=== PATIENT | male | born 1935 | race Caucasian/White ===

== ENCOUNTER 2016-08-15 21:26 | Outpatient (CLI) | payer MEDICARE, OTHER | END 2016-08-15 21:27 | disposition home or self-care (01) | DX: M79.604 Pain in right leg (principal) ==

== ENCOUNTER 2016-08-18 11:24 | Outpatient (CLI) | payer MEDICARE, OTHER | END 2016-08-18 23:59 | DX: R10.9 Unspecified abdominal pain (principal); Z79.899 Other long term (current) drug therapy ==

== ENCOUNTER 2016-08-22 13:52 | Emergency (ER) | payer MEDICARE, OTHER ==
[2016-08-22] MEDS ORDERED: ASPIRIN CHEW 81 MG TABLET PO STA (15:07)
[2016-08-22] MEDS ORDERED: ASPIRIN CHEW 81 MG TABLET ONE (15:13)
== END 2016-08-22 17:06 | disposition home or self-care (01) ==
DX: I20.8 Other forms of angina pectoris (principal); I10 Essential (primary) hypertension; Z79.82 Long term (current) use of aspirin
CPT/HCPCS: 36415; 71010; 80053; 83690; 84484; 85025; 93005; 93010; 99284; A9270

== ENCOUNTER 2016-12-20 09:17 | Outpatient (CLI) | payer MEDICARE, OTHER | END 2016-12-20 09:18 | disposition home or self-care (01) | LOC: LAB.WCP 09:17 | PROVIDERS: ATTEND Physician Assistant Medical | DX: F52.21 Male erectile disorder (principal) | CPT/HCPCS: 36415; 84403 ==

== ENCOUNTER 2016-12-28 09:37 | Outpatient (CLI) | payer MEDICARE, OTHER ==
[2016-12-28 13:31] LABS: PROLACTIN 10.52 ng/mL
[2016-12-28 13:55] LABS: LUTEINIZING HORMONE 7.67 mIU/mL
== END 2016-12-28 09:38 | disposition home or self-care (01) ==
LOC: LAB.WCP 09:37
PROVIDERS: ATTEND Physician Assistant Medical
DX: E29.1 Testicular hypofunction (principal); Z12.5 Encounter for screening for malignant neoplasm of prostate
CPT/HCPCS: 36415; 83002; 84146; G0103; 84153

== ENCOUNTER 2017-01-04 08:00 | Outpatient (CLI) | payer MEDICARE, OTHER | END 2017-01-04 08:01 | disposition home or self-care (01) | LOC: LAB.WCP 08:00 | PROVIDERS: ATTEND Physician Assistant Medical | DX: E29.1 Testicular hypofunction (principal) | CPT/HCPCS: 36415; 84403 ==

== ENCOUNTER 2017-03-13 13:26 | Outpatient (CLI) | payer MEDICARE, OTHER ==
[2017-03-13 14:09] LABS: CREATININE 1.3 mg/dL (0.6-1.2)
[2017-03-13] MEDS ORDERED: GADOBUTROL 7.5 MMOL/7.5 ML VIAL ONE (14:55)
[2017-03-13] MEDS ORDERED: GADOBUTROL 7.5 MMOL/7.5 ML VIAL IVP ONE (15:34)
--- NOTE | 2017-03-13 22:02 | MRI Report ---
EXAM: RIGHT ANKLE/HINDFOOT MRI WITHOUT AND WITH CONTRAST EXAM DATE: 03/13/2017 03:46 PM. CLINICAL HISTORY: Right ankle pain and swelling for 3 months. COMPARISON: None. TECHNIQUE: Multiplanar, multisequence T1-weighted and fluid-sensitive sequences of the ankle before a nd after administration of intravenous contrast. IV contrast: 7.5 mL Gadavist. Other: None. FINDINGS: Bones and articular cartilage: Small calcaneal enthesophytes. No acute fracture or bone lesions. Brittany cular cartilage is within normal limits. Ligaments: The anterior and posterior tibiofibular, anterior and posterior talofibular, and calcaneof ibular ligaments are intact. The deep and superficial deltoid and spring ligaments are intact. Anterior Tendons: The tibialis anterior, extensor hallucis longus, and extensor digitorum longus tend ons are unremarkable. Medial Tendons: The tibialis posterior, flexor digitorum longus, and flexor hallucis longus tendons a re unremarkable. Lateral Tendons: The peroneus brevis and longus are unremarkable. Achilles Tendon: Fusiform enlargement, slight T2 hyperintense signal, and slight enhancement within t he mid aspect of the Achilles tendon consistent with tendinosis. There is a linear low-grade partial- thickness tear within the medial mid aspect of the Achilles tendon. Edema and enhancement around the Achilles tendon. Musculature: No edema or fatty atrophy. Other: No effusions or synovitis. The contents of the sinus tarsi and tarsal tunnel are unremarkable. No plantar fasciitis. Subcutaneous edema and mild enhancement at the medial and lateral aspects and posterior aspects of the ankle. IMPRESSION: 1. Tendinosis and a linear low-grade partial tear within the mid aspect of the Achilles tendon. There is also Achilles peritendinitis and paratendinitis. 2. Small calcaneal enthesophytes. 3. Subcutaneous edema and mild enhancement at the medial, lateral, and posterior aspects of the ankle . [facility] MUSCULOSKELET[facility]IOLOG[facility] SECTION Referring Provider Line: [phone] SITE ID: [id number]
== END 2017-03-13 13:27 | disposition home or self-care (01) ==
LOC: DI 13:26
PROVIDERS: ATTEND Physician Assistant Medical
DX: S86.011A Strain of right Achilles tendon, initial encounter (principal); M76.61 Achilles tendinitis, right leg; R03.0 Elevated blood-pressure reading, without diagnosis of hypertension
CPT/HCPCS: 36415; 73723; 82565; A9585

== ENCOUNTER 2017-07-05 08:17 | Outpatient (CLI) | payer MEDICARE, OTHER ==
[2017-07-05 13:10] LABS: PSA SCREEN (Z12.5) 2.23 ng/mL (0.000-2.000)
== END 2017-07-05 08:18 | disposition home or self-care (01) ==
LOC: LAB.WCP 08:17
PROVIDERS: ATTEND Family Medicine
DX: Z12.5 Encounter for screening for malignant neoplasm of prostate (principal); E29.1 Testicular hypofunction; Z51.81 Encounter for therapeutic drug level monitoring; Z79.899 Other long term (current) drug therapy
CPT/HCPCS: 36415; 84403; G0103; 84153

== ENCOUNTER 2017-07-09 08:00 | Outpatient (CLI) | payer MEDICARE, OTHER ==
[2017-07-09 12:36] LABS: BASOPHILS % (AUTO) 0.7 %; EOSINOPHILS # (AUTO) 0.2 10^3/uL (0.0-0.7); HGB - HEMOGLOBIN 15.4 g/dL (14.0-18.0); LYMPHOCYTES # (AUTO) 1.7 10^3/uL (1.5-3.5); LYMPHOCYTES % (AUTO) 29.7 %; MEAN CORPUSCULAR HEMOGLOBIN 28.6 pg (27.0-31.0); MEAN CORPUSCULAR HGB CONC 34.1 g/dL (32.0-36.0); MEAN CORPUSCULAR VOLUME 83.7 fL (80.0-94.0); MEAN PLATELET VOLUME 8.9 fL (7.4-11.4); MONOCYTES # (AUTO) 0.6 10^3/uL (0.0-1.0); MONOCYTES % (AUTO) 10.9 %; NEUTROPHILS % (AUTO) 54.7 %; PLT - PLATELET COUNT 182 10^3/uL (130-450); RED BLOOD COUNT 5.39 10^6/uL (4.70-6.10); RED CELL DISTRIBUTION WIDTH 13.2 % (12.0-15.0); WHITE BLOOD COUNT 5.6 x10^3/uL (4.8-10.8)
[2017-07-09 12:45] LABS: ALBUMIN/GLOBULIN RATIO 1.3 (1.0-2.2); ALKALINE PHOSPHATASE 32 IU/L (42-121); ALT ALANINE AMINOTRANSFERASE 23 IU/L (10-60); AST ASPARTATE AMINOTRANSFERASE 22 IU/L (10-42); BILIRUBIN,TOTAL 0.5 mg/dL (0.2-1.0); BUN - BLOOD UREA NITROGEN 19 mg/dL (6-20); CALCIUM 8.8 mg/dL (8.5-10.3); CARBON DIOXIDE - CO2 24 mmol/L (21-32); CHLORIDE 105 mmol/L (101-111); CREATININE 1.2 mg/dL (0.6-1.2); GFR - MDRD 58 (>89); GLUCOSE 98 mg/dL (70-100); SODIUM 138 mmol/L (135-145)
[2017-07-09 12:49] LABS: THYROID STIMULATING HORMONE 3.76 uIU/mL (0.34-5.60)
== END 2017-07-09 23:59 | disposition home or self-care (01) ==
LOC: LAB.WCP 08:00
PROVIDERS: ATTEND Family Medicine
DX: R41.3 Other amnesia (principal)
CPT/HCPCS: 36415; 80053; 81599; 82607; 84443; 85025; 86592

== ENCOUNTER 2018-01-03 11:24 | Outpatient (CLI) | payer MEDICARE, OTHER ==
[2018-01-03 19:30] LABS: BASOPHILS % (AUTO) 0.7 %; EOSINOPHILS # (AUTO) 0.2 10^3/uL (0.0-0.7); EOSINOPHILS % (AUTO) 3.6 %; HGB - HEMOGLOBIN 14.4 g/dL (14.0-18.0); LYMPHOCYTES # (AUTO) 1.4 10^3/uL (1.5-3.5); LYMPHOCYTES % (AUTO) 23.9 %; MEAN CORPUSCULAR HEMOGLOBIN 29.7 pg (27.0-31.0); MEAN CORPUSCULAR HGB CONC 34.1 g/dL (32.0-36.0); MEAN CORPUSCULAR VOLUME 86.9 fL (80.0-94.0); MONOCYTES # (AUTO) 0.6 10^3/uL (0.0-1.0); MONOCYTES % (AUTO) 10.6 %; NEUTROPHILS # (AUTO) 3.7 10^3/uL (1.5-6.6); NEUTROPHILS % (AUTO) 61.2 %; PLT - PLATELET COUNT 198 10^3/uL (130-450); RED BLOOD COUNT 4.86 10^6/uL (4.70-6.10); RED CELL DISTRIBUTION WIDTH 13.6 % (12.0-15.0)
[2018-01-03 20:04] LABS: PSA FREE 0.51 ng/mL (0.16-2.81)
[2018-01-03 20:05] LABS: PSA TOTAL 1.98 ng/mL (0.000-2.000)
== END 2018-01-03 11:25 ==
LOC: LAB.WCP 11:24
PROVIDERS: ATTEND Family Medicine
DX: R97.20 Elevated prostate specific antigen [PSA] (principal); E29.1 Testicular hypofunction
CPT/HCPCS: 36415; 84154; 84403; 85025

== ENCOUNTER 2018-03-12 14:18 | Outpatient (CLI) | payer MEDICARE, OTHER ==
--- NOTE | 2018-03-13 08:30 | XRAY Report ---
Reason: LOW BACK PAIN SYNDROME Procedure Date: 03/12/2018 Accession Number: [id number] / [id number] Procedure: XR - Lumbar Spine 2 View CPT Code: FULL RESULT: EXAM: LUMBOSACRAL SPINE RADIOGRAPHY EXAM DATE: 03/12/2018 02:38 PM. CLINICAL HISTORY: Low back pain syndrome. COMPARISONS: None. TECHNIQUE: 3 views. FINDINGS: Alignment: Normal. No spondylolisthesis or scoliosis. Bones: Five [id number] lumbar vertebral bodies are present. No fractures or bone lesions. Disks: Normal. Disk heights are maintained. Mild anterior marginal osteophyte is noted at L2-L3 and on the left at L4-L5. Facets: Degenerative facet changes are noted at L4-L5 and greatest at L5-S1. Sacroiliac Joints: Unremarkable. Soft Tissues: Normal. The visualized bowel gas pattern is normal. IMPRESSION: Mild degenerative changes commensurate with age. No fracture appreciated. [facility]
== END 2018-03-12 14:19 | disposition home or self-care (01) ==
LOC: DI 14:18
PROVIDERS: ATTEND Nurse Practitioner
DX: M47.9 Spondylosis, unspecified (principal)
CPT/HCPCS: 72100

== ENCOUNTER 2018-05-07 15:51 | Outpatient (CLI) | payer MEDICARE, OTHER ==
--- NOTE | 2018-05-07 16:40 | CT Report ---
Reason: FLANK PAIN,RIGHT,HEMATURIA Procedure Date: 05/07/2018 Accession Number: [id number] / [id number] Procedure: CT - Abdomen/Pelvis W/O CPT Code: FULL RESULT: EXAM: CT ABDOMEN AND PELVIS (CT KUB) EXAM DATE: 05/07/2018 04:21 PM. CLINICAL HISTORY: Right flank pain with hematuria. COMPARISONS: LUMBAR SPINE 2 VIEW 03/12/2018 2:29 PM. TECHNIQUE: Routine axial helical CT imaging was performed through the abdomen and pelvis without IV contrast. Reconstructions: Coronal and sagittal. In accordance with CT protocol optimization, one or more of the following dose reduction techniques were utilized for this exam: automated exposure control, adjustment of mA and/or KV based on patient size, or use of iterative reconstructive technique. FINDINGS: Lung Bases: Unremarkable. Right Kidney/Ureter: No stones, hydronephrosis, or hydroureter. No perinephric fat stranding. Left Kidney/Ureter: No stones, hydronephrosis, or hydroureter. No perinephric fat stranding. Other Solid Organs: Multiple hepatic cysts noted up to 5.7 cm size, otherwise the noncontrast images of the solid organs are grossly unremarkable. Gallbladder/Bile Ducts: Unremarkable. Peritoneal Cavity: No free fluid, free air or ankur adenopathy. Mild diverticulosis, otherwise the bowel is grossly unremarkable. Normal appendix noted. Pelvic Organs: No bladder stones or wall thickening. Noncontrast images of the visualized pelvic organs are unremarkable. Vasculature: Unremarkable. Other: Small fat-containing left inguinal and umbilical hernias noted. Chronic T11 and L4 compression fractures noted. IMPRESSION: 1. No kidney or ureteral stones or obstruction. 2. Multiple hepatic cysts noted. 3. Mild diverticulosis without diverticulitis. [facility]
== END 2018-05-07 15:52 | disposition home or self-care (01) ==
LOC: DI 15:51
PROVIDERS: ATTEND Family Medicine
DX: K76.89 Other specified diseases of liver (principal); K57.30 Diverticulosis of large intestine without perforation or abscess without bleeding; R10.9 Unspecified abdominal pain; R31.9 Hematuria, unspecified
CPT/HCPCS: 74176

== ENCOUNTER 2018-12-03 08:00 | Outpatient (CLI) | payer MEDICARE, OTHER ==
--- NOTE | 2018-12-05 04:53 | XRAY Report ---
Reason: BILATERAL RIB PAIN Procedure Date: 12/03/2018 Accession Number: [id number] / [id number] Procedure: WCP - Ribs Bilat w/Chest 4 View CPT Code: FULL RESULT: EXAM: BILATERAL RIB RADIOGRAPHY EXAM DATE: 12/03/2018 03:32 PM. CLINICAL HISTORY: BILATERAL RIB PAIN. COMPARISON: Chest, 06/05/2017. TECHNIQUE: 1 view of the chest and 4 views of the ribs. FINDINGS: Bones: Osteopenia. Irregularity of the anterior right sixth rib which may be a nondisplaced fracture. No left rib fracture identified. Lungs: No alveolar consolidation or pleural effusion seen. No pneumothorax. Mediastinum: Within exam limitations, heart size is normal. Tortuous atherosclerotic aorta. Other: None. IMPRESSION: 1. Possible subtle fracture of the anterior right sixth rib. [facility]
== END 2018-12-03 23:59 | disposition home or self-care (01) ==
LOC: DI.WCP 08:00
PROVIDERS: ATTEND Family Medicine
DX: R07.81 Pleurodynia (principal)
CPT/HCPCS: 71111

== ENCOUNTER 2018-12-19 11:37 | Outpatient (CLI) | payer MEDICARE, OTHER ==
--- NOTE | 2018-12-20 19:48 | XRAY Report ---
Reason: RIGHT HIP PAIN Procedure Date: 12/19/2018 Accession Number: [id number] / [id number] Procedure: WCP - Hip 1 View RT CPT Code: FULL RESULT: EXAM: RIGHT HIP RADIOGRAPHY EXAM DATE: 12/19/2018 12:02 PM. CLINICAL HISTORY: Chronic right hip pain. No known injury. COMPARISON: None. TECHNIQUE: AP pelvis and frog lateral view of the right hip. FINDINGS: Bones: Small marginal osteophytes at the acetabulums. No acute fracture or bone lesions. Joints: Degenerative changes at the visualized lower lumbar spine. No dislocation. The hip joint space is preserved. Soft Tissues: Pelvic phleboliths are present. IMPRESSION: 1. Small marginal osteophytes at the acetabulums. Kellgren Osei Grade 1. 2. Degenerative changes at the visualized lower lumbar spine. Kellgren and Osei classification of osteoarthritis: Grade 0: no radiographic features of osteoarthritis are present Grade 1: doubtful joint space narrowing (JSN) and possible osteophytic lipping Grade 2: definite osteophytes and possible JSN on anteroposterior weight-bearing radiograph Grade 3: multiple osteophytes, definite JSN, sclerosis, possible bony deformity Grade 4: large osteophytes, marked JSN, severe sclerosis and definite bony deformity [facility]
== END 2018-12-19 23:59 | disposition home or self-care (01) ==
LOC: DI.WCP 11:37 → EDSTATUS 13:17 → DI.WCP 23:59
PROVIDERS: ATTEND Family Medicine
DX: M16.11 Unilateral primary osteoarthritis, right hip (principal); M47.816 Spondylosis without myelopathy or radiculopathy, lumbar region

== ENCOUNTER 2019-01-29 08:00 | Outpatient (CLI) | payer MEDICARE, OTHER ==
[2019-01-29 12:21] LABS: BASOPHILS % (AUTO) 0.5 %; EOSINOPHILS # (AUTO) 0.2 10^3/uL (0.0-0.7); EOSINOPHILS % (AUTO) 3.8 %; HGB - HEMOGLOBIN 14.7 g/dL (14.0-18.0); LYMPHOCYTES # (AUTO) 1.5 10^3/uL (1.5-3.5); LYMPHOCYTES % (AUTO) 24.9 %; MEAN CORPUSCULAR HEMOGLOBIN 29.8 pg (27.0-31.0); MEAN CORPUSCULAR HGB CONC 33.9 g/dL (32.0-36.0); MEAN CORPUSCULAR VOLUME 87.7 fL (80.0-94.0); MEAN PLATELET VOLUME 10.9 fL (7.4-11.4); MONOCYTES # (AUTO) 0.6 10^3/uL (0.0-1.0); MONOCYTES % (AUTO) 10.5 %; NEUTROPHILS # (AUTO) 3.5 10^3/uL (1.5-6.6); PLT - PLATELET COUNT 216 10^3/uL (130-450); RED BLOOD COUNT 4.94 10^6/uL (4.70-6.10); RED CELL DISTRIBUTION WIDTH 12.6 % (12.0-15.0); WHITE BLOOD COUNT 5.8 x10^3/uL (4.8-10.8)
[2019-01-29 12:52] LABS: ALBUMIN/GLOBULIN RATIO 1.4 (1.0-2.2); ALKALINE PHOSPHATASE 48 IU/L (42-121); ALT ALANINE AMINOTRANSFERASE 21 IU/L (10-60); AST ASPARTATE AMINOTRANSFERASE 19 IU/L (10-42); BILIRUBIN,TOTAL 0.9 mg/dL (0.2-1.0); BUN - BLOOD UREA NITROGEN 19 mg/dL (6-20); CALCIUM 8.8 mg/dL (8.5-10.3); CARBON DIOXIDE - CO2 26 mmol/L (21-32); CHLORIDE 105 mmol/L (101-111); CHOL/HDL RATIO 5.2 (<5.0); CHOLESTEROL 204 mg/dL; CREATININE 1.2 mg/dL (0.6-1.2); GFR - MDRD 58 (>89); GLUCOSE 102 mg/dL (70-100); HDL CHOLESTEROL 39 mg/dL; LDL CHOLESTEROL,CALCULATED 131 mg/dL; LDL/HDL RATIO 3.4 (<3.6); SODIUM 138 mmol/L (135-145); TOTAL PROTEIN 6.8 g/dL (6.7-8.2); VLDL CHOLESTEROL 34 mg/dL
== END 2019-01-29 08:01 | disposition home or self-care (01) ==
LOC: LAB.WCP 08:00
PROVIDERS: ATTEND Physician Assistant Medical
DX: R41.3 Other amnesia (principal); R97.20 Elevated prostate specific antigen [PSA]; I10 Essential (primary) hypertension; E78.5 Hyperlipidemia, unspecified; K21.9 Gastro-esophageal reflux disease without esophagitis
CPT/HCPCS: 36415; 80061; G0103; 80053; 83721; 84153; 84443; 85025

== ENCOUNTER 2019-08-26 12:37 | Outpatient (CLI) | payer MEDICARE, OTHER | END 2019-08-26 12:38 | disposition EMS.NT | LOC: EMS 12:37 | PROVIDERS: ATTEND Surgery | DX: M25.511 Pain in right shoulder (principal); W01.198A Fall on same level from slipping, tripping and stumbling with subsequent striking against other object, initial encounter; Y92.018 Other place in single-family (private) house as the place of occurrence of the external cause ==

== ENCOUNTER 2019-08-26 13:18 | Emergency (ER) | payer MEDICARE, OTHER ==
[2019-08-26 13:36] VITALS: BP 110/60
--- NOTE | 2019-08-26 14:08 | ED Physician Documentation ---
PD HPI UPPER EXT INJURY - Stated complaint Stated Complaint: R SHOULDER INJ/GLF - Chief complaint Chief Complaint: Ext Problem - History obtained from History obtained from: Patient (Pt presents via EMS after a right shoulder injury. He states he was moving some wood with a 2-wheeled carrier device and the wood got stuck so he kicked it off the carrier and then he subsequently tripped over the wood and landed onto his right shoulder on the concrete. He reports right shoulder pain, no other injuries, did not hit his head or lose consciousness. He had no prodromal sx such as dizziness, weakness, or chest pain. He denies any headache, neck pain, chest pain, abd pain, hip pain, or lower extremity pain. The right shoulder is not uncomfortable unless he attempts movement or gets jostled around. He denies decreased sensation or paraesthesia of the extremity.) Review of Systems Constitutional: reports: Reviewed and negative Eyes: reports: Reviewed and negative Cardiac: reports: Reviewed and negative Respiratory: reports: Reviewed and negative GI: reports: Reviewed and negative : reports: Reviewed and negative Skin: reports: Reviewed and negative Musculoskeletal: reports: Extremity pain (right shoulder pain and decreased mobility), Joint pain (right shoulder pain). denies: Neck pain, Back pain Neurologic: reports: Reviewed and negative PD PAST MEDICAL HISTORY - Past Surgical History Past Surgical History: Yes - Present Medications Home Medications: Ambulatory Orders Medication Instructions Recorded Confirmed Aspirin 81 mg PO DAILY #30 tab.chew 08/22/16 Atorvastatin Calcium [Lipitor] 0.5 tab PO DAILY #30 tablet 08/22/16 Metoprolol Succinate [Toprol Xl] 25 mg PO DAILY #30 tab.er.24h 08/22/16 Nitroglycerin 0.4 mg SL Q5M PRN #1 bot 08/22/16 - Allergies Allergies/Adverse Reactions: Allergies Allergy/AdvReac Type Severity Reaction Status Date / Time No Known Drug Allergies Allergy Verified 08/26/19 13:36 - Social History Does the pt smoke?: No Smoking Status: Never smoker Does the pt drink ETOH?: No PD ED PE NORMAL - Vitals Vital signs reviewed: Yes - General General: Alert and oriented X 3, No acute distress, Well developed/nourished - HEENT HEENT: Atraumatic, EOMI, Moist mucous membranes - Neck Neck: Supple, no meningeal sign, No bony TTP, No JVD - Cardiac Cardiac: RRR, No murmur, No gallop, No rub, Strong equal pulses - Respiratory Respiratory: No respiratory distress, Clear bilaterally - Abdomen Abdomen: Normal bowel sounds, Soft, Non tender, Non distended, No organomegaly - Derm Derm: Normal color, Warm and dry, No rash - Extremities Extremities: Other (right anterior shoulder ttp, pt holding in slinged position of comfort and minimal flex/ext/rotated due to discomfort. No obvious deformity, no tenderness across the clavicle or w/ palpation of the scapula. Moves forearm, hand, and fingers w/o difficulty, normal distal strength and sensation. ) - Neuro Neuro: Alert and oriented X 3, No motor deficit, No sensory deficit, Normal speech Eye Opening: Spontaneous Motor: Obeys Commands Verbal: Oriented GCS Score: 15 - Psych Psych: Normal mood, Normal affect Results - Vitals Vitals: Vital Signs - 24 hr 08/26/19 13:28 Temperature 36.4 C L Heart Rate 56 L Respiratory 20 Rate Blood Pressure 110/60 O2 Saturation 96 Oxygen O2 Source Room air PD MEDICAL DECISION MAKING - ED course Complexity details: reviewed results, re-evaluated patient, considered differential, d/w patient, other (d/w attending ED physician Dr. Paredes.) ED course: 83 yo M presented with right shoulder pain after a mechanical fall. Radiographs reviewed and pt noted to have a right humeral neck fracture. Possible mild subluxation which I reviewed w/ Dr. Paredes who felt no indication for attempt at reduction. Fracture fairly apparent to me and Dr. Paredes therefore did not pursue CT. Pt comfortable at rest and in sling. I advised prn NSAIDs/Acetaminophen and frequent cool compress over the the next several days. I have placed referral to Ortho for follow up in 1-2 weeks. Pt with minimal pain therefore I felt narcotic pain medication would be more risky and pt agreed he would like to try tylenol/motrin only. I discussed return precautions and cautioned him on careful activity while he is in the sling due to decreased balance. Departure - Departure Disposition: 01 Home, Self Care Clinical Impression: Fracture of proximal humerus Qualifiers: Encounter type: initial encounter Fracture type: closed Fracture morphology: other fracture Fracture alignment: nondisplaced Laterality: right Qualified Code(s): S42.294A - Other nondisplaced fracture of upper end of right humerus, initial encounter for closed fracture Condition: Good Instructions: ED Fx Upper Ext Follow-Up: [facility] [Provider Group] Comments: You sustained a fracture of the right upper arm near the shoulder in an area called the humeral neck. We will place you in a sling and advise cool compresses for 10-15 minutes every few hours for the next several days as well as Acetaminophen (Tylenol) or Ibuprofen (Motrin, Advil) as needed. I have placed a referral to the bone specialists (Orthopedic physicians) to follow up in the next 1-2 weeks. Typically this type of fracture heals on its own, but sometimes there is damage within the joint or the supporting tendons and muscles that requires ongoing treatment and follow up. If you develop increased pain, numbness or tingling in the arm or hand, or otherwise worsening symptoms, return to the ER. Discharge Date/Time: 08/26/19 15:12
--- NOTE | 2019-08-26 14:38 | XRAY Report ---
Reason: fall/shoulder pain Procedure Date: 08/26/2019 Accession Number: [id number] / [id number] Procedure: XR - Shoulder 3 View RT CPT Code: Final Report FULL RESULT: EXAM: RIGHT SHOULDER RADIOGRAPHY EXAM DATE: 08/26/2019 02:03 PM. CLINICAL HISTORY: Fall/shoulder pain. COMPARISON: SHOULDER 2 VIEW RT 03/15/2018 11:33 AM. TECHNIQUE: 3 views. FINDINGS: Bones: Subtle lucency appears to be present extending just distal to the anatomic neck and likely involving the lesser tuberosity and extending to the greater tuberosity. Subtle cortical impaction appears to be present along the medial aspect, otherwise nondisplaced. Joints: Humeral head appears subluxed posterior and superiorly. Mild AC joint arthropathy. Mild glenohumeral degenerative change. Soft tissues: No radiopaque foreign body. Visualized portion of the lung appears unremarkable. IMPRESSION: 1. Subtle lucency appears to be present extending just distal to the anatomic neck of the humerus, and likely involving the lesser tuberosity and extending into the greater tuberosity. Subtle cortical step-off appears to be present along the medial aspect of the lucency. This suggests an essentially nondisplaced fracture, with only subtle impaction along the medial aspect. There is some overlying artifact that mildly degrades assessment. Given the subtle appearance of this suspected fracture, consider further assessment with CT or MRI for confirmation and additional detailed anatomic delineation. 2. Humeral head appears subluxed posterior and superiorly, although may not be completely dislocated. [facility]
[2019-08-26] MEDS ORDERED: IBUPROFEN 600 MG TABLET PO STA (14:56)
[2019-08-26] MEDS ORDERED: ACETAMINOPHEN 325 MG TABLET PO STA (14:56)
== END 2019-08-26 15:12 | disposition home or self-care (01) ==
LOC: ED 13:18
DX: S42.294A Other nondisplaced fracture of upper end of right humerus, initial encounter for closed fracture (principal); W01.0XXA Fall on same level from slipping, tripping and stumbling without subsequent striking against object, initial encounter; Y93.H9 Activity, other involving exterior property and land maintenance, building and construction; Y92.007 Garden or yard of unspecified non-institutional (private) residence as the place of occurrence of the external cause
CPT/HCPCS: 73030; 99283; 99284; A9270

== ENCOUNTER 2020-05-07 09:16 | Outpatient (CLI) | payer MEDICARE, OTHER ==
[2020-05-07 12:26] LABS: BASOPHILS % (AUTO) 0.5 %; EOSINOPHILS # (AUTO) 0.3 10^3/uL (0.0-0.7); EOSINOPHILS % (AUTO) 4.6 %; HGB - HEMOGLOBIN 14.7 g/dL (14.0-18.0); LYMPHOCYTES # (AUTO) 1.5 10^3/uL (1.5-3.5); LYMPHOCYTES % (AUTO) 27.3 %; MEAN CORPUSCULAR HEMOGLOBIN 28.5 pg (27.0-31.0); MEAN CORPUSCULAR HGB CONC 32.2 g/dL (32.0-36.0); MEAN CORPUSCULAR VOLUME 88.5 fL (80.0-94.0); MEAN PLATELET VOLUME 10.6 fL (7.4-11.4); MONOCYTES # (AUTO) 0.8 10^3/uL (0.0-1.0); MONOCYTES % (AUTO) 13.4 %; NEUTROPHILS % (AUTO) 53.8 %; PLT - PLATELET COUNT 238 10^3/uL (130-450); RED BLOOD COUNT 5.15 10^6/uL (4.70-6.10); RED CELL DISTRIBUTION WIDTH 12.9 % (12.0-15.0); WHITE BLOOD COUNT 5.6 x10^3/uL (4.8-10.8)
[2020-05-07 13:03] LABS: BILIRUBIN,URINE NEGATIVE (NEGATIVE); GLUCOSE, URINE (UA) NEGATIVE (NEGATIVE); KETONES,URINE (UA) NEGATIVE (NEGATIVE); LEUKOCYTE ESTERASE, URINE NEGATIVE (NEGATIVE); NITRITE,URINE NEGATIVE (NEGATIVE); OCCULT BLOOD,URINE NEGATIVE (NEGATIVE); PROTEIN,URINE NEGATIVE (NEGATIVE); PSA FREE 0.534 ng/mL (0.16-2.81); UROBILINOGEN,URINE 0.2 (NORMAL) E.U./dL (NORMAL)
[2020-05-07 13:04] LABS: PSA TOTAL 1.94 ng/mL (0.000-2.000)
[2020-05-07 13:13] LABS: ALBUMIN/GLOBULIN RATIO 1.5 (1.0-2.2); ALKALINE PHOSPHATASE 45 IU/L (42-121); ALT ALANINE AMINOTRANSFERASE 22 IU/L (10-60); AST ASPARTATE AMINOTRANSFERASE 22 IU/L (10-42); BILIRUBIN,TOTAL 0.7 mg/dL (0.2-1.0); BUN - BLOOD UREA NITROGEN 19 mg/dL (6-20); CALCIUM 9.1 mg/dL (8.5-10.3); CARBON DIOXIDE - CO2 25 mmol/L (21-32); CHLORIDE 102 mmol/L (101-111); CHOL/HDL RATIO 5.4 (<5.0); CHOLESTEROL 200 mg/dL; CREATININE 1.1 mg/dL (0.6-1.2); GLUCOSE 96 mg/dL (70-100); HDL CHOLESTEROL 37 mg/dL; LDL CHOLESTEROL,CALCULATED 118 mg/dL; LDL/HDL RATIO 3.2 (<3.6); SODIUM 137 mmol/L (135-145); TOTAL PROTEIN 6.7 g/dL (6.7-8.2); VLDL CHOLESTEROL 45 mg/dL
[2020-05-07 13:15] LABS: BACTERIA,URINE None Seen /HPF (None Seen); CLARITY,URINE CLEAR (CLEAR); RBC,URINE None Seen /HPF (0-5); SQUAMOUS EPITHELIAL CELL,UR NONE SEEN (<= Few)
--- OUTSIDE RECORDS SUMMARY | 2020-05-12 01:54 | EXTERNAL MEDICAL SUMMARY RPT | Continuity of Care Document ---
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 2014-05-05 16:23 HISTORY OF FALL [facility] 2016-01-05 15:33 OTH MENISCUS DERANGEMENTS, [facility] OTHER LATERAL MENISCUS, LEFT KNEE 2016-01-05 15:33 UNSPECIFIED INTERNAL [facility] DERANGEMENT OF LEFT KNEE 2016-01-05 15:33 EFFUSION, LEFT KNEE [facility] 2016-01-05 15:33 OTHER SYNOVITIS AND [facility] TENOSYNOVITIS, LEFT LOWER LEG 2016-01-19 07:00 ELEVATED PROSTATE SPECIFIC [facility] ANTIGEN [PSA] 2016-01-19 08:45 MIXED HYPERLIPIDEMIA [facility] 2016-01-19 08:45 GASTRO-ESOPHAGEAL REFLUX [facility] DISEASE WITHOUT ESOPHAGITIS 2016-01-19 08:45 ENLARGED PROSTATE WITH LOWER [facility] URINARY TRACT SYMPTOMS 2016-01-19 08:[address] [facility] 2016-08-15 21:26 PAIN IN RIGHT LEG 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[facility] 2016-12-28 09:37 ENCOUNTER FOR SCREENING FOR [facility] MALIGNANT NEOPLASM OF PROSTATE 2017-01-04 08:00 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[facility] 2017-03-06 08:00 ENCOUNTER FOR THERAPEUTIC DRUG [facility] LEVEL MONITORING 2017-03-06 08:00 OTHER NURSE TRANSITION (CURRENT) DRUG [facility] THERAPY 2017-03-13 13:26 ACHILLES TENDINITIS, RIGHT LEG [facility] 2017-03-13 13:26 ELEVATED BLOOD-PRESSURE [facility] READING, W/O DIAGNOSIS OF HTN 2017-03-13 13:26 STRAIN OF RIGHT ACHILLES [facility] TENDON, INITIAL ENCOUNTER 2017-07-05 08[facility] 2017-07-05 08:17 ENCOUNTER FOR SCREENING FOR [facility] MALIGNANT NEOPLASM OF PROSTATE 2017-07-05 08:17 ENCOUNTER FOR THERAPEUTIC DRUG [facility] LEVEL MONITORING 2017-07-05 08:17 OTHER ASSISTED (CURRENT) DRUG [facility] THERAPY 2017-07-09 08:[address] 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 2018-12-19 11:[address] 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 2019-01-29 08:00 ELEVATED PROSTATE SPECIFIC [facility] ANTIGEN [PSA] 2019-03-12 09:01 CARDIAC MURMUR, UNSPECIFIED [facility] 2019-08-26 13:18 OTH NONDISP FX OF UPPER END OF [facility] RIGHT HUMERUS, INIT 2019-08-26 13:18 UNSP INJURY OF RIGHT SHOULDER [facility] AND UPPER ARM, INIT ENCNTR 2019-08-26 13:18 FALL SAME LEV FROM SLIP/TRIP [facility] W/O STRIKE AGAINST OBJECT, INIT 2019-08-26 13:18 GARDEN OR YARD OF UNSP [facility] NON-INSTITUT RESIDENCE PLACE 2019-08-26 13:18 ACTVTY,OTH W EXTER PROPERTY [facility] LAND MAINT, BLDG AND CONSTRUCT 2020-04-29 00:00:00 Hematuria [facility] Prim [facility] 2020-04-29 00:00:00 CT [facility] [place] [facility] 2020-04-29 00:00:00 Basic Metabolic Panel (BMP) [facility] 2020-04-29 00:00:00 Gross hematuria [facility] 2020-04-29 00:00:00 Hematuria, unspecified [facility] 2020-04-29 00:00:00 Health-related behavior [facility] 2020-04-29 00:00:00 Tobacco use and exposure [facility] 2020-04-29 00:00:00 Exercise [facility] 2020-04-29 00:00:00 Blood in urine [facility] 2020-04-29 00:00:00 Details of drug misuse behavior [facility] 2020-04-29 00:00:00 Alcohol use [facility] 2020-04-29 00:00:00 Tobacco smoking status NHIS [facility] 2020-04-29 00:00:00 Former smoker [facility] 2020-05-07 00:00 MIXED HYPERLIPIDEMIA [facility] 2020-05-07 00:00:00 COMPREHENSIVE METABOLIC PANEL [facility] 2020-05-07 00:00:00 LIPIDS SCREEN [facility] 2020-05-07 00:00:00 Urinalysis with Microscopic [facility] alth Primary Care Exam, Culture in Indicated [facility] 2020-05-07 00:00:00 PSA FREE AND TOTAL [facility] 2020-05-07 00:00:00 CBC W/Diff/Plt [facility] 2020-05-07 00:00:00 Health-related behavior [facility] 2020-05-07 00:00:00 [facility] 2020-05-07 00:00:00 Exercise [facility] 2020-05-07 00:00:00 Details of drug misuse behavior [facility] 2020-05-07 00:00:00 Little interest or pleasure in [facility] Primary [facility] doing things? [facility] 2020-05-07 00:00:00 Feeling down, depressed, [facility]? [facility] 2020-05-07 00:00:00 Patient Health Questionnaire 2 [facility] Primary [facility] item (PHQ2) total score [facility] 2020-05-07 00:00:[address] [facility] 2020-05-07 00:00:00 Tobacco smoking status NHIS [facility] 2020-05-07 00:00:00 Former smoker [facility] 2020-05-07 09:16 MIXED HYPERLIPIDEMIA [facility] ical [place] 2020-05-07 09:16 GROSS HEMATURIA [facility] Medic al [place] 2020-05-07 09:16 ELEVATED PROSTATE SPECIFIC [facility] ANTIGEN [PSA] Allergies date description facility JUAN INHIBITORS [facility] Medic [facility] No Known Allergies [facility] NO ALLERGY INFORMATION AVAILABLE [facility] PENICILLINS [facility] SULFA (SULFONAMIDE ANTIBIOTICS) [facility] NO KNOWN ALLERGIES [facility] SHELLFISH CONTAINING PRODUCTS [facility] INDACATEROL [facility] CODEINE [facility] HYDROCODONE [facility] ZINC OXIDE [facility] CAPTOPRIL [facility] RITUXIMAB [facility] IODINE [facility] LATEX [facility] ADHESIVE TAPE-SILICONES [facility] LANOLIN-MINERAL OIL [facility] No Known Drug Allergies [facility] No Known Drug Allergies [facility] NO KNOWN ALLERGIES [facility] Medic [facility] No Known Drug Allergies [facility] No Known Drug Allergies [facility] NO KNOWN ALLERGIES [facility] Medic [facility] Center No Known Drug Allergies [facility] NO KNOWN ALLERGIES [facility] Medic [facility] No Known Drug Allergies [facility] Procedures date description facility 2020-04-29 00:00:00 POC URINALYSIS DIP [facility] Prim [facility]bie Care [place] [facility] date description facility 2020-04-29 00:00:00 [facility] [place] [facility] date description facility 2020-05-07 00:00:00 COMPREHENSIVE METABOLIC PANEL [facility] [place] [facility] date description facility 2020-05-07 00:00:00 LIPIDS SCREEN [facility] Prim [facility]bie Care [place] [facility] date description facility 2020-05-07 00:00:00 Ur[facility]ysis with [facility]scopic [facility], Culture in Indicated [place] [facility] date description facility 2020-05-07 00:00:00 PSA FREE AND TOTAL [facility] Prim [facility]bie Care [place] [facility] date description facility 2020-05-07 00:00:00 CBC W/Diff/Plt [facility] Prim [facility]bie Care [place] [facility] date description facility 2020-05-07 00:00:00 [facility] [place] [facility] Results Social History date description facility 2020-04-29 00:00:00 Former smoker [facility] [place] [facility] date description facility 2020-05-07 00:00:00 [facility] [place] [facility] Social History date description facility 2020-04-29 00:00:00 [facility] [place] [facility] date description facility 2020-05-07 00:00:00 [facility] [place] [facility] date description facility [phone]
== END 2020-05-07 23:59 | disposition home or self-care (01) ==
LOC: LAB.WCP 09:16
PROVIDERS: ATTEND Physician Assistant Medical
DX: E78.2 Mixed hyperlipidemia (principal); R31.0 Gross hematuria; R97.20 Elevated prostate specific antigen [PSA]; K21.9 Gastro-esophageal reflux disease without esophagitis
CPT/HCPCS: 36415; 80053; 80061; 81001; 83721; 84153; 84154; 85025; 87086

== ENCOUNTER 2020-05-19 08:11 | Outpatient (CLI) | payer MEDICARE, OTHER ==
[2020-05-19] MEDS ORDERED: IOVERSOL 320 100 ML VIAL IVP ONE ×2 (08:27→16:02)
--- NOTE | 2020-05-19 16:08 | CT Report ---
PROCEDURE: IVP INDICATIONS: GROSS HEMATURIA CONTRAST: IV CONTRAST: Optiray 320 ml: 140 PO CONTRAST: *NO PO CONTRAST TECHNIQUE: After the administration of intravenous contrast, 5 mm thick sections acquired from the diaphragms to the symphysis. 5 mm thick coronal and sagittal reformats were acquired. For radiation dose reducti on, the following was used: automated exposure control, adjustment of mA and/or kV according to gema ent size. COMPARISON: None. FINDINGS: Image quality: Excellent. Lung bases: Lung bases are clear. Heart size is normal. Moderate coronary artery calcifications. Urinary system: Both kidneys are normal in size and enhancement. Contrast-filled renal calyces are normal in morphology. Contrast filled portions of both ureters are normal in caliber. Bladder wall thickness is normal. The prostate is enlarged. Not previously identifiable is a 1.7 cm right prostate nodule. Reference image 99/6. Solid organs: Liver and spleen are normal in size and enhancement. Multiple bilateral liver cysts. G allbladder is unremarkable Biliary system is non dilated. Pancreas enhances normally. No adrenal n odules. Peritoneum and bowel: Bowel loops demonstrate normal wall thickness and caliber. No free fluid or a ir. Nodes and vessels: No retroperitoneal or mesenteric adenopathy by size criteria. Aorta is ectatic bu t not frankly aneurysmal. Abdominal wall: No ventral hernias. Pelvis: No pathologic free pelvic fluid. Prominent left inguinal hernia containing fat. No inguinal adenopathy. Bones: No suspicious bony lesions. Numerous old compression fractures., Including T6, T7, T8, and T1 1. No lytic or blastic bony lesions identified. No acute compressions noted. IMPRESSION: 1. No renal stone, ureteral stone, or hydronephrosis. 2. No findings suspicious for malignancy. 3. Prostate enlargement with possible interval development of a 1.8 cm right prostate nodule. 4. Multiple chronic osteoporotic compressions. 5. Coronary artery disease. Consider urological consultation for possible developing prostate nodule. Reviewed by: Dariel Lopez MD on 05/19/2020 4:06 PM [facility] Approved by: Dariel Lopez MD on 05/19/2020 4:06 PM PST Station ID: [id number]
== END 2020-05-19 08:12 | disposition home or self-care (01) ==
LOC: DI 08:11
PROVIDERS: ATTEND Family Medicine
DX: N40.0 Benign prostatic hyperplasia without lower urinary tract symptoms (principal); M81.0 Age-related osteoporosis without current pathological fracture; I25.10 Atherosclerotic heart disease of native coronary artery without angina pectoris
CPT/HCPCS: 74178; Q9967

== ENCOUNTER 2021-03-28 13:43 | Outpatient (CLI) | payer MEDICARE, OTHER ==
[2021-03-28 18:08] LABS: BASOPHILS % (AUTO) 0.6 %; EOSINOPHILS # (AUTO) 0.2 10^3/uL (0.0-0.7); EOSINOPHILS % (AUTO) 2.9 %; HCT - HEMATOCRIT 42.9 % (42.0-52.0); HGB - HEMOGLOBIN 13.8 g/dL (14.0-18.0); LYMPHOCYTES # (AUTO) 1.9 10^3/uL (1.5-3.5); LYMPHOCYTES % (AUTO) 26.1 %; MEAN CORPUSCULAR HEMOGLOBIN 28.8 pg (27.0-31.0); MEAN CORPUSCULAR HGB CONC 32.2 g/dL (32.0-36.0); MEAN CORPUSCULAR VOLUME 89.6 fL (80.0-94.0); MEAN PLATELET VOLUME 10.7 fL (7.4-11.4); MONOCYTES # (AUTO) 0.7 10^3/uL (0.0-1.0); MONOCYTES % (AUTO) 9.4 %; NEUTROPHILS # (AUTO) 4.3 10^3/uL (1.5-6.6); NEUTROPHILS % (AUTO) 60.7 %; PLT - PLATELET COUNT 239 10^3/uL (130-450); RED BLOOD COUNT 4.79 10^6/uL (4.70-6.10); RED CELL DISTRIBUTION WIDTH 12.8 % (12.0-15.0); WHITE BLOOD COUNT 7.1 x10^3/uL (4.8-10.8)
[2021-03-28 18:24] LABS: CALCIUM 9.4 mg/dL (8.5-10.3); CREATININE 1.2 mg/dL (0.6-1.2); POTASSIUM 4.6 mmol/L (3.5-5.0)
== END 2021-03-28 23:59 | disposition home or self-care (01) ==
LOC: LAB.N 13:43
PROVIDERS: ATTEND Physician Assistant Medical
DX: R10.9 Unspecified abdominal pain (principal)
CPT/HCPCS: 36415; 80048; 85025

== ENCOUNTER 2021-05-05 08:00 | Outpatient (CLI) | payer MEDICARE, OTHER ==
[2021-05-05 11:57] LABS: BASOPHILS % (AUTO) 0.7 %; EOSINOPHILS # (AUTO) 0.3 10^3/uL (0.0-0.7); EOSINOPHILS % (AUTO) 4.5 %; HCT - HEMATOCRIT 41.7 % (42.0-52.0); HGB - HEMOGLOBIN 13.7 g/dL (14.0-18.0); LYMPHOCYTES # (AUTO) 1.9 10^3/uL (1.5-3.5); LYMPHOCYTES % (AUTO) 33.5 %; MEAN CORPUSCULAR HEMOGLOBIN 29.3 pg (27.0-31.0); MEAN CORPUSCULAR HGB CONC 32.9 g/dL (32.0-36.0); MEAN CORPUSCULAR VOLUME 89.3 fL (80.0-94.0); MEAN PLATELET VOLUME 10.4 fL (7.4-11.4); MONOCYTES # (AUTO) 0.6 10^3/uL (0.0-1.0); MONOCYTES % (AUTO) 10.8 %; NEUTROPHILS # (AUTO) 2.8 10^3/uL (1.5-6.6); NEUTROPHILS % (AUTO) 50.1 %; PLT - PLATELET COUNT 235 10^3/uL (130-450); RED BLOOD COUNT 4.67 10^6/uL (4.70-6.10); RED CELL DISTRIBUTION WIDTH 12.9 % (12.0-15.0); WHITE BLOOD COUNT 5.6 x10^3/uL (4.8-10.8)
[2021-05-05 12:26] LABS: ALBUMIN/GLOBULIN RATIO 1.3 (1.0-2.2); ALKALINE PHOSPHATASE 48 IU/L (42-121); ALT ALANINE AMINOTRANSFERASE 21 IU/L (10-60); AST ASPARTATE AMINOTRANSFERASE 18 IU/L (10-42); BUN - BLOOD UREA NITROGEN 23 mg/dL (6-20); CALCIUM 9.1 mg/dL (8.5-10.3); CARBON DIOXIDE - CO2 27 mmol/L (21-32); CHLORIDE 102 mmol/L (101-111); CHOL/HDL RATIO 4.4 (<5.0); CHOLESTEROL 219 mg/dL; CREATININE 1.1 mg/dL (0.6-1.2); GFR - MDRD 64 (>89); GLUCOSE 100 mg/dL (70-100); HDL CHOLESTEROL 50 mg/dL; LDL CHOLESTEROL,CALCULATED 154 mg/dL; LDL/HDL RATIO 3.1 (<3.6); POTASSIUM 4.3 mmol/L (3.5-5.0); SODIUM 137 mmol/L (135-145); TRIGLYCERIDES 75 mg/dL; VLDL CHOLESTEROL 15 mg/dL
[2021-05-05 12:27] LABS: PSA TOTAL 1.83 ng/mL (0.000-2.000)
[2021-05-05 13:16] LABS: BILIRUBIN,URINE NEGATIVE (NEGATIVE); GLUCOSE, URINE (UA) NEGATIVE (NEGATIVE); KETONES,URINE (UA) NEGATIVE (NEGATIVE); LEUKOCYTE ESTERASE, URINE NEGATIVE (NEGATIVE); NITRITE,URINE NEGATIVE (NEGATIVE); OCCULT BLOOD,URINE NEGATIVE (NEGATIVE); PROTEIN,URINE NEGATIVE (NEGATIVE); UROBILINOGEN,URINE 0.2 (NORMAL) E.U./dL (NORMAL)
[2021-05-05 13:24] LABS: CLARITY,URINE CLEAR (CLEAR)
[2021-05-05 14:06] LABS: BACTERIA,URINE None Seen /HPF (None Seen); RBC,URINE 0-5 /HPF (0-5); SQUAMOUS EPITHELIAL CELL,UR NONE SEEN (<= Few); WBC,URINE 0-3 /HPF (0-3)
== END 2021-05-05 23:59 | disposition home or self-care (01) ==
LOC: LAB.WCP 08:00
PROVIDERS: ATTEND Physician Assistant Medical
DX: E78.2 Mixed hyperlipidemia (principal); R31.0 Gross hematuria; R41.3 Other amnesia; N40.0 Benign prostatic hyperplasia without lower urinary tract symptoms
CPT/HCPCS: 36415; 80053; 80061; 81001; 82607; 83721; 84153; 85025; 87086

== ENCOUNTER 2022-04-18 12:11 | Outpatient (CLI) | payer MEDICARE, OTHER ==
--- NOTE | 2022-04-18 19:56 | XRAY Report ---
PROCEDURE: Lumbar Spine 2 View INDICATIONS: ARTHRITIS, LUMBAR SPINE TECHNIQUE: 3 views of the lumbar spine were acquired. COMPARISON: CT IVP 05/19/2020 FINDINGS: Bones: 5 [id number]-gah-lttuerd vertebrae are present. No significant curvature of the lumbar spine. 2 mm retrolisthesis L5 on S1, 2 mm retrolisthesis L4 on L5, 3 mm anterolisthesis L3 on L4. 3 mm retrolisth esis L1 on L2. Mild-moderate multilevel degenerative changes with disc height loss, endplate spurring , and facet arthropathy. No lumbar vertebral body compression fractures. No suspicious bony lesions. Soft tissues: Overlying bowel gas pattern is normal. Vascular calcifications are present IMPRESSION: Mild-moderate multilevel degenerative changes of the lumbar spine. Reviewed by: Srikanth Saavedra MD on 04/18/2022 7:55 PM PST Approved by: Srikanth Saavedra MD on 04/18/2022 7:55 PM PST Station ID: [id number]
--- NOTE | 2022-04-18 20:05 | XRAY Report ---
PROCEDURE: Thoracic Spine 2 View INDICATIONS: THORACIC ARTHRITIS TECHNIQUE: 2 views of the thoracic spine were acquired. COMPARISON: CT IVP 05/19/2020, chest and rib radiographs 12/03/2018. FINDINGS: Bones: No definite acute appearing fractures or dislocations. Mild superior compression of T11 appea rs similar to the prior CT. Minimal superior endplate compression T8, mild superior compression T6, p ossibly also T5 and T4. Superior thoracic vertebral bodies not well visualized due to overlying bones and soft tissues. Multilevel degenerative changes of the thoracic spine present, mild. No suspicious bony lesions. 12 pairs of ribs are noted, and appear intact where visualized. Soft tissues: No paravertebral stripe thickening. IMPRESSION: 1. Multilevel degenerative changes of the thoracic spine. 2. Mild superior compression fracture of T11 appears similar to before. 3. Multiple other remote appearing compression fractures also present. Reviewed by: Srikanth Saavedra MD on 04/18/2022 8:03 PM PST Approved by: Srikanth Saavedra MD on 04/18/2022 8:03 PM PST Station ID: [id number]
== END 2022-04-18 12:12 | disposition home or self-care (01) ==
LOC: DI.N 12:11
PROVIDERS: ATTEND Family Medicine
DX: M47.814 Spondylosis without myelopathy or radiculopathy, thoracic region (principal); M48.54XA Collapsed vertebra, not elsewhere classified, thoracic region, initial encounter for fracture; M47.816 Spondylosis without myelopathy or radiculopathy, lumbar region; M51.36 Other intervertebral disc degeneration, lumbar region; M47.817 Spondylosis without myelopathy or radiculopathy, lumbosacral region

== ENCOUNTER 2023-02-14 07:24 | Outpatient (CLI) | payer MEDICARE, OTHER ==
[2023-02-14 12:11] LABS: BASOPHILS % (AUTO) 0.6 %; EOSINOPHILS # (AUTO) 0.2 10^3/uL (0.0-0.7); EOSINOPHILS % (AUTO) 4.5 %; HCT - HEMATOCRIT 44.2 % (42.0-52.0); LYMPHOCYTES # (AUTO) 1.5 10^3/uL (1.5-3.5); LYMPHOCYTES % (AUTO) 29.5 %; MEAN CORPUSCULAR HGB CONC 31.7 g/dL (32.0-36.0); MEAN CORPUSCULAR VOLUME 88.4 fL (80.0-94.0); MEAN PLATELET VOLUME 10.6 fL (7.4-11.4); MONOCYTES # (AUTO) 0.7 10^3/uL (0.0-1.0); MONOCYTES % (AUTO) 12.8 %; NEUTROPHILS # (AUTO) 2.7 10^3/uL (1.5-6.6); NEUTROPHILS % (AUTO) 52.2 %; PLT - PLATELET COUNT 234 10^3/uL (130-450); RED CELL DISTRIBUTION WIDTH 12.9 % (12.0-15.0); WHITE BLOOD COUNT 5.1 x10^3/uL (4.8-10.8)
[2023-02-14 12:27] LABS: ALBUMIN 4.3 g/dL (3.2-5.5); ALBUMIN/GLOBULIN RATIO 1.8 (1.0-2.2); ALKALINE PHOSPHATASE 48 IU/L (42-121); ALT ALANINE AMINOTRANSFERASE 12 IU/L (10-60); AST ASPARTATE AMINOTRANSFERASE 13 IU/L (10-42); BILIRUBIN,TOTAL 0.9 mg/dL (0.2-1.0); BUN - BLOOD UREA NITROGEN 27 mg/dL (6-20); CALCIUM 9.4 mg/dL (8.5-10.3); CARBON DIOXIDE - CO2 30 mmol/L (21-32); CHLORIDE 104 mmol/L (101-111); CHOLESTEROL 219 mg/dL; CREATININE 1.2 mg/dL (0.6-1.3); GFR - MDRD 58 (>89); GLUCOSE 98 mg/dL (74-104); HDL CHOLESTEROL 44 mg/dL; LDL CHOLESTEROL,CALCULATED 154 mg/dL; LDL/HDL RATIO 3.5 (<3.6); POTASSIUM 4.5 mmol/L (3.5-4.5); SODIUM 138 mmol/L (135-145); TOTAL PROTEIN 6.7 g/dL (6.4-8.9); TRIGLYCERIDES 107 mg/dL (48-352); VLDL CHOLESTEROL 21 mg/dL
== END 2023-02-14 07:25 | disposition home or self-care (01) ==
LOC: LAB.N 07:24
PROVIDERS: ATTEND Physician Assistant Medical
DX: E78.2 Mixed hyperlipidemia (principal); R97.20 Elevated prostate specific antigen [PSA]; I10 Essential (primary) hypertension
CPT/HCPCS: 36415; 80053; 80061; 83721; 84153; 85025

== ENCOUNTER 2023-05-02 09:00 | Outpatient (CLI) | payer MEDICARE, OTHER | END 2023-05-02 09:01 | disposition home or self-care (01) | LOC: DI 09:00 | PROVIDERS: ATTEND Physician Assistant Medical | DX: I35.0 Nonrheumatic aortic (valve) stenosis (principal); I51.7 Cardiomegaly | CPT/HCPCS: 93306 ==

== ENCOUNTER 2023-06-07 13:45 | Outpatient (CLI) | payer MEDICARE, OTHER ==
--- NOTE | 2023-06-07 15:48 | XRAY Report ---
PROCEDURE: Lumbar Spine 2-3V INDICATIONS: LUMBAR PAIN TECHNIQUE: 3 view(s) of the lumbar spine were acquired. COMPARISON: None. FINDINGS: Bones: Vertebral body height and alignment is maintained. No suspicious bony lesions. Lower lumbar s pine arthropathy and disc space narrowing. Soft tissues: Overlying bowel gas pattern is normal. No suspicious soft tissue calcifications. 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 No fracture Reviewed by: Alexx Meraz MD on 06/07/2023 2:46 PM [place] Approved by: Alexx Meraz MD on 06/07/2023 2:46 PM AKST Station ID: [id number]
== END 2023-06-07 14:00 | disposition home or self-care (01) ==
LOC: DI.N 13:45
PROVIDERS: ATTEND Physician Assistant Medical
DX: M47.816 Spondylosis without myelopathy or radiculopathy, lumbar region (principal); M51.36 Other intervertebral disc degeneration, lumbar region

== ENCOUNTER 2023-12-04 08:13 | Outpatient (CLI) | payer MEDICARE, OTHER ==
--- NOTE | 2023-12-04 14:33 | MRI Report ---
Lumbar Spine WO Clinical History: 88 years of age, Male, AUB. Comparison: No priors available Technique: Multiplanar multisequence lumbar spine MRI without contrast was performed. Findings: Localizer image: 1.3 cm lesion in the right hemiliver, incompletely evaluated (series 1, image 10). Prior surgery: None. Vertebral bodies: Moderate superior endplate fracture of T11, chronic. Mild superior endplate fragili ty fracture of L1, chronic. Mild superior endplate fragility fracture of L4, chronic. No acute fractu re of the lumbar vertebral bodies. Alignment: Grade 1 anterolisthesis of L3 on L4. Bone marrow: There is right lateral disc osteophyte complex at L1-L2, with associated marrow edema an d soft tissue edema, degenerative. Intervertebral discs: Multilevel disc bulge and disc desiccation. The conus medullaris is normal in contour, signal intensity, and location. The tip of the conus is at T12-L1. The following axial levels are detailed below: T12-L1: Mild lateral facet arthropathy. Mild disc bulge. No central canal stenosis. No right neurofor aminal stenosis. No left neuroforaminal stenosis. L1-L2: Mild disc bulge. Mild bilateral facet arthropathy. No central canal stenosis. Mild right neur oforaminal stenosis. No left neuroforaminal stenosis. L2-L3: Mild disc bulge. Mild central canal stenosis. Mild bilateral facet arthropathy. No right neuro foraminal stenosis. No left neuroforaminal stenosis. L3-L4: Posterior disc uncovering. Moderate bilateral facet arthropathy. Mild central canal stenosis. No right neuroforaminal stenosis. No left neuroforaminal stenosis. L4-L5: Disc bulge. Mild bilateral facet arthropathy. Mild central canal stenosis. No right neuroforam inal stenosis. Mild left neuroforaminal stenosis. L5-S1: Moderate bilateral facet arthropathy. No central canal stenosis. No right neuroforaminal steno sis. Mild left neuroforaminal stenosis. Visualized sacrum and pelvis: Visualized sacrum is intact. Subcentimeter T2 hyperintense lesion in th e right hemiliver, incompletely characterized. Small right renal cysts. Multiple left parapelvic kurtis l cysts. IMPRESSION: 1.Multilevel degenerative changes of the lumbar spine, with multilevel mild central canal and neurofo raminal stenosis. 2.Multilevel chronic vertebral body fractures as described above. 3.Right lateral disc osteophyte complex at L1-2 with associated marrow edema and soft tissue edema, d egenerative. 4.Incompletely characterized 1.3 cm right liver lesion, and a subcentimeter right liver lesion. Reviewed by: Kacie Pendleton MD on 12/04/2023 2:32 PM PDT Approved by: Kacie Pendleton MD on 12/04/2023 2:32 PM PDT Station ID: [id number]
== END 2023-12-04 08:14 | disposition home or self-care (01) ==
LOC: DI 08:13
PROVIDERS: ATTEND Physician Assistant Medical
DX: M47.816 Spondylosis without myelopathy or radiculopathy, lumbar region (principal); M47.817 Spondylosis without myelopathy or radiculopathy, lumbosacral region; M25.78 Osteophyte, vertebrae; K76.89 Other specified diseases of liver; M48.56XD Collapsed vertebra, not elsewhere classified, lumbar region, subsequent encounter for fracture with routine healing; M51.36 Other intervertebral disc degeneration, lumbar region; M48.061 Spinal stenosis, lumbar region without neurogenic claudication; M48.07 Spinal stenosis, lumbosacral region

== ENCOUNTER 2023-12-23 06:25 | Outpatient (CLI) | payer MEDICARE, OTHER ==
--- NOTE | 2023-12-23 23:17 | Ultrasound Report ---
PROCEDURE: Abdomen Limited INDICATIONS: LIVER LESION TECHNIQUE: Real-time focused scanning was performed of the abdomen, with image documentation. COMPARISONS: CT IVP 05/19/2020. FINDINGS: Liver: Measures 13.3 cm. Heterogeneous echotexture. No cyst identified. Gallbladder: No gallstones, sludge, wall thickening or pericholecystic edema. Biliary ducts: Intrahepatic bile ducts are non-dilated. Extrahepatic bile duct caliber measures 3 m m. Normal is 6-7 mm or less in diameter, or 10 mm or less post-cholecystectomy. Pancreas: Not well visualized due to overlying bowel gas. Right kidney: Normal in size and echotexture. Right kidney measures 10.5 cm long. No hydronephrosis or nephrolithiasis. No solid masses. No complex renal cystic lesions which require follow-up. IVC: Intrahepatic inferior vena cava is patent. Miscellaneous: No free abdominal fluid. IMPRESSION: Limited exam due to body habitus and acoustic windows. Hepatic cysts are not identified. Consider CT or MRI for further evaluation. Reviewed by: Rahul Fontanez MD on 12/23/2023 11:16 PM PDT Approved by: Rahul Fontanez MD on 12/23/2023 11:16 PM PDT Station ID: [id number]
== END 2023-12-23 06:26 | disposition home or self-care (01) ==
LOC: DI 06:25
PROVIDERS: ATTEND Physician Assistant Medical
DX: K76.9 Liver disease, unspecified (principal)

== ENCOUNTER 2024-01-17 07:08 | Outpatient (CLI) | payer MEDICARE, OTHER ==
[2024-01-17 11:52] LABS: BASOPHILS % (AUTO) 0.7 %; EOSINOPHILS # (AUTO) 0.4 10^3/uL (0.0-0.7); EOSINOPHILS % (AUTO) 6.7 %; HCT - HEMATOCRIT 42.4 % (42.0-52.0); HGB - HEMOGLOBIN 13.3 g/dL (14.0-18.0); LYMPHOCYTES # (AUTO) 1.6 10^3/uL (1.5-3.5); LYMPHOCYTES % (AUTO) 28.3 %; MEAN CORPUSCULAR HEMOGLOBIN 28.1 pg (27.0-31.0); MEAN CORPUSCULAR HGB CONC 31.4 g/dL (32.0-36.0); MEAN CORPUSCULAR VOLUME 89.6 fL (80.0-94.0); MEAN PLATELET VOLUME 11.3 fL (7.4-11.4); MONOCYTES # (AUTO) 0.8 10^3/uL (0.0-1.0); MONOCYTES % (AUTO) 13.4 %; NEUTROPHILS # (AUTO) 2.9 10^3/uL (1.5-6.6); NEUTROPHILS % (AUTO) 50.4 %; PLT - PLATELET COUNT 207 10^3/uL (130-450); RED BLOOD COUNT 4.73 10^6/uL (4.70-6.10); RED CELL DISTRIBUTION WIDTH 12.7 % (12.0-15.0); WHITE BLOOD COUNT 5.7 x10^3/uL (4.8-10.8)
[2024-01-17 12:30] LABS: ALBUMIN 4.1 g/dL (3.2-5.5); ALBUMIN/GLOBULIN RATIO 1.7 (1.0-2.2); ALKALINE PHOSPHATASE 46 IU/L (42-121); ALT ALANINE AMINOTRANSFERASE 18 IU/L (10-60); AST ASPARTATE AMINOTRANSFERASE 14 IU/L (10-42); BILIRUBIN,TOTAL 0.7 mg/dL (0.2-1.0); BUN - BLOOD UREA NITROGEN 25 mg/dL (6-20); CALCIUM 9.3 mg/dL (8.5-10.3); CARBON DIOXIDE - CO2 29 mmol/L (21-32); CHLORIDE 106 mmol/L (101-111); CHOLESTEROL 140 mg/dL; CREATININE 1.3 mg/dL (0.6-1.3); GFR - MDRD 52 (>89); GLUCOSE 99 mg/dL (74-104); HDL CHOLESTEROL 47 mg/dL; LDL CHOLESTEROL,CALCULATED 71 mg/dL; LDL/HDL RATIO 1.5 (<3.6); POTASSIUM 4.6 mmol/L (3.5-4.5); SODIUM 139 mmol/L (135-145); TOTAL PROTEIN 6.5 g/dL (6.4-8.9); TRIGLYCERIDES 111 mg/dL; VLDL CHOLESTEROL 22 mg/dL
== END 2024-01-17 07:09 | disposition home or self-care (01) ==
LOC: LAB.N 07:08
PROVIDERS: ATTEND Physician Assistant Medical
DX: E78.2 Mixed hyperlipidemia (principal); R97.20 Elevated prostate specific antigen [PSA]; I10 Essential (primary) hypertension
CPT/HCPCS: 36415; 80053; 80061; 83721; 84153; 85025